=== PATIENT | male | born 1925 | race Caucasian/White ===

== ENCOUNTER 2017-01-08 18:03 | Observation (INO) ==
--- NOTE | 2017-01-08 18:12 | Emergency Department Note ---
Disposition Clinical Impression: Chest pain Disposition: Admitted As Inpatient Condition: Fair Referrals: Elizabeth Salgado CNP [Primary Care Provider] - Forms: ED Satisfaction Letter Time of Disposition: 19:34 (obsv elroy) Chest Pain HPI - General Chief Complaint: ED Chest Pain Stated Complaint: chest arm and jaw pain Time Seen by Provider: 01/08/17 18:16 Source: patient Mode of arrival: ambulatory Limitations: no limitations Vital Signs Reviewed: Yes Nursing Notes Reviewed: Yes - History of Present Illness HPI Narrative: Presents to the emergency room having chest pain jaw pain left arm pain but no numbness or weakness this tingling denies any nausea vomiting or diaphoresis at this time he said it had been going on earlier he denies cough hemoptysis or sputum production and he said it reminds him of when he had his cardiac disease he has had cardiac catheterization in the past and has had stenting he had open- heart 1980s as result he is here for evaluation Pt complaint: chest pain Onset (ago): hour(s) Onset: during rest, during exertion Pain Location: substernal Severity: mild Severity scale (1-10): 1 Quality: aching Pain Radiation: none Improves with: nothing Worsens with: nothing Associated symptoms: Reports: nausea, diaphoresis, dyspnea, other (jaw pain). Denies: vomiting, sense of impending doom, syncope, palpitations, fever, cough, leg swelling Treatments prior to arrival chest pain: aspirin - Related Data Home Medications Medication Instructions Recorded Confirmed Aspirin 325 mg PO DAILY 03/21/15 03/21/15 Enalapril Maleate [Vasotec] 20 mg PO BID 03/21/15 03/21/15 Finasteride [Proscar] 5 mg PO DAILY 03/21/15 03/21/15 Furosemide [Lasix] 10 mg PO DAILY 03/21/15 03/21/15 HydrALAZINE 25 mg PO Q8HR 03/21/15 03/21/15 Potassium Chloride [Potassium 10 meq PO DAILY 03/21/15 03/21/15 Chloride] Primidone [Mysoline] 25 mg PO BID 03/21/15 03/21/15 Propranolol [Inderal] 20 mg PO BID 03/21/15 03/21/15 Ranitidine HCl [Zantac] 150 mg PO DAILY 03/21/15 03/21/15 Simvastatin [Zocor] 40 mg PO HS 03/21/15 03/21/15 Previous Rx's Medication Instructions Recorded Cephalexin [Keflex] 500 mg PO TID #21 capsule 03/21/15 HYDROcodone/Acet 5/325 mg [[place] 1 tab PO TID PRN #6 tablet 03/21/15 5-325 mg] Allergies Allergy/AdvReac Type Severity Reaction Status Date / Time iodine Allergy Hives Verified 03/21/15 10:16 All systems ED: reviewed and negative except as stated. Constitutional: Denies: fever, chills, weakness Eyes: Denies: eye pain, eye discharge ENT ED: Denies: ear pain Cardiovascular: Reports: chest pain. Denies: palpitations, dyspnea on exertion Respiratory: Denies: cough, dyspnea, wheezes Gastrointestinal: Denies: abdominal pain, nausea, vomiting Genitourinary: Denies: urgency, dysuria Musculoskeletal: Denies: back pain, neck pain Integumentary: Denies: rash Neurological: Denies: headache Psychiatric: Denies: anxiety Endocrine: Denies: fatigue Hematological/Lymphatic: Denies: easy bleeding Allergic/Immunologic: Denies: facial swelling Chest Pain PMH - Past Medical History Medical history: Reports: coronary artery disease Surgical history: Reports: coronary bypass (CABG) - Social History Smoking Status: Former smoker Alcohol use: Reports: occasionally Drug use: Reports: none Physical Exam - General Limitations: no limitations General appearance: alert, in no apparent distress - Head Head exam: atraumatic, normocephalic, normal inspection - Eye Eye exam: Present: normal appearance, PERRL, EOMI - ENT ENT exam: normal exam, normal oropharynx, mucous membranes moist, normal external ear exam - Neck Neck exam: Present: normal inspection, full ROM, trachea midline - Chest Chest inspection: Present: normal inspection, symmetric chest wall rise - Respiratory Respiratory exam: Present: normal lung sounds bilaterally - Cardiovascular Cardiovascular exam: Present: regular rate, normal rhythm, normal heart sounds - Abdominal Exam Abdominal exam: Present: soft, Non-Tender, normal bowel sounds. Absent: mass, pulsatile mass - Extremities Exam Extremities exam: Present: normal inspection, full ROM, normal capillary refill. Absent: tenderness, joint swelling - Expanded Lower Extremity Exam Neurovascular/Tendon exam: Present: normal capillary refill, normal fine/light touch Gait: observed and normal - Back Exam Back exam: Present: normal inspection, full ROM. Absent: muscle spasm - Neurological Exam Neurological exam: Present: alert, oriented X3, CN II-XII intact, normal gait - Psychiatric Psychiatric exam: Present: normal affect, normal mood - Skin Skin exam: Present: warm, dry, intact, normal color Course Course Narrative: Seen and examined patient is asymptomatic at this time patient is resting comfortably patient taken his aspirin prior to arrival to the emergency room as result patient be admitted for observation based on his history Vital Signs Temperature 100.9 F H 01/08/17 18:16 Pulse Rate 104 01/08/17 18:16 Respiratory Rate 23 01/08/17 18:16 Blood Pressure 121/62 01/08/17 18:16 O2 Sat by Pulse Oximetry 98 01/08/17 18:16 Temperature 100.9 F H 01/08/17 18:19 Pulse Rate 105 01/08/17 18:25 Respiratory Rate 23 01/08/17 18:19 Blood Pressure 121/62 01/08/17 18:19 O2 Sat by Pulse Oximetry 98 01/08/17 18:19 Oxygen Delivery Oxygen Delivery Room Air Chest Pain - Differential Diagnosis Likely: unstable angina pectoris, st elevation myocardial infraction, chest pain - Medical Records Medical records reviewed: Yes I reviewed the patient's medical records. - Lab Data Lab results reviewed: Yes I reviewed the patient's lab results. Result diagrams: 01/08/17 18:43 01/08/17 18:43 Lab Results 01/08/17 01/08/17 01/08/17 Range/Units 18:43 18:43 18:43 WBC 6.9 (4.3-11.1) K/mcL RBC 4.74 (4.19-5.50) M/mcL Hgb 14.5 (12.9-16.9) g/dL Hct 41.6 (37.5-50.1) % MCV 87.8 (83.0-100.0) fL MCH 30.6 (28.0-33.3) pg MCHC 34.9 (31.6-35.5) g/dL RDW 13.2 (11.5-14.5) % Plt Count 154 (140-400) K/mcL MPV 10.2 (9.4-12.4) fL Immature Gran % 0.4 (0-4) % Seg Neutrophils % 69.8 % Lymphocytes % 17.9 % Monocytes % 9.3 % Eosinophils % 1.9 % Basophils % 0.7 % Neutrophils # 4.8 (1.6-8.9) K/mcL Lymphocytes # 1.2 (0.6-4.6) K/mcL Monocytes # 0.6 (0.0-1.3) K/mcL Eosinophils # 0.1 (0.0-0.6) K/mcL Basophils # 0.1 (0.0-0.2) K/mcL PT 11.8 (9.4-12.1) Seconds INR 1.1 APTT 29.2 (26.0-36.0) Seconds Sodium 142 (136-145) mEq/L Potassium 4.0 (3.5-4.5) mEq/L Chloride 105 (98-109) mEq/L Carbon Dioxide 25 (19-29) mEq/L BUN 16 (8-26) mg/dL Creatinine 0.96 (0.72-1.25) mg/dL Est GFR ( Amer) > 60 (> 60) Est GFR (Non-Af Amer) > 60 (> 60) BUN/Creatinine Ratio 17 (6-26) Glucose 141 H (70-99) mg/dL Calculated Osmolality 298 (280-300) Calcium 10.5 (8.6-10.8) mg/dL Troponin I (0-0.03) ng/mL B-Natriuretic Peptide (0-100) pg/mL TSH 1.997 (0.350-4.840) mcIU/mL 01/08/17 01/08/17 Range/Units 18:43 18:43 WBC (4.3-11.1) K/mcL RBC (4.19-5.50) M/mcL Hgb (12.9-16.9) g/dL Hct (37.5-50.1) % MCV (83.0-100.0) fL MCH (28.0-33.3) pg MCHC (31.6-35.5) g/dL RDW (11.5-14.5) % Plt Count (140-400) K/mcL MPV (9.4-12.4) fL Immature Gran % (0-4) % Seg Neutrophils % % Lymphocytes % % Monocytes % % Eosinophils % % Basophils % % Neutrophils # (1.6-8.9) K/mcL Lymphocytes # (0.6-4.6) K/mcL Monocytes # (0.0-1.3) K/mcL Eosinophils # (0.0-0.6) K/mcL Basophils # (0.0-0.2) K/mcL PT (9.4-12.1) Seconds INR APTT (26.0-36.0) Seconds Sodium (136-145) mEq/L Potassium (3.5-4.5) mEq/L Chloride (98-109) mEq/L Carbon Dioxide (19-29) mEq/L BUN (8-26) mg/dL Creatinine (0.72-1.25) mg/dL Est GFR ( Amer) (> 60) Est GFR (Non-Af Amer) (> 60) BUN/Creatinine Ratio (6-26) Glucose (70-99) mg/dL Calculated Osmolality (280-300) Calcium (8.6-10.8) mg/dL Troponin I 0.01 (0-0.03) ng/mL B-Natriuretic Peptide 159 H (0-100) pg/mL TSH (0.350-4.840) mcIU/mL - Radiology Data Radiology results reviewed: Yes I reviewed the patient's radiology results. ITS Impressions Chest X-Ray 01/08/17 18:18 IMPRESSION: No acute process. D/ / Adam Govea MD / Adam Govea MD Interpreting Provider: Adam Govea MD - EKG Data EKG attestation: Yes I reviewed and interpreted this EKG. EKG results narrative: Atrial fib with RVR rate 103 QRS 138 QT 358 axis CXXXIII right bundle branch block present left posterior fascicular block Heart Score - Score History: Slightly Suspicious EKG: Non Specific repolarisation Disturbance Age: Greater than 65 Risk Factors: Equal/Greater than 3 risk factor or history of atherosclerotic disease Troponin: Less than normal limit HEART Score Total: 5 Critical Care Time Critical Care Time: No
[2017-01-08 18:51] LABS: Basophils # 0.1 K/mcL (0.0-0.2); Basophils % 0.7 %; Eosinophils # 0.1 K/mcL (0.0-0.6); Eosinophils % 1.9 %; Hematocrit 41.6 % (37.5-50.1); Hemoglobin 14.5 g/dL (12.9-16.9); Immature Granulocytes % 0.4 % (0-4); Lymphocytes # 1.2 K/mcL (0.6-4.6); Lymphocytes % 17.9 %; Mean Corpuscular HGB Conc 34.9 g/dL (31.6-35.5); Mean Corpuscular Hemoglobin 30.6 pg (28.0-33.3); Mean Corpuscular Volume 87.8 fL (83.0-100.0); Mean Platelet Volume 10.2 fL (9.4-12.4); Monocytes # 0.6 K/mcL (0.0-1.3); Monocytes % 9.3 %; Neutrophils # 4.8 K/mcL (1.6-8.9); Platelet Count 154 K/mcL (140-400); Red Blood Count 4.74 M/mcL (4.19-5.50); Red Cell Distribution Width 13.2 % (11.5-14.5); Segmented Neutrophils % 69.8 %
[2017-01-08 18:57] LABS: INR 1.1; Prothrombin Time 11.8 Seconds (9.4-12.1)
[2017-01-08 19:00] LABS: Activated Partial Thrombo Time 29.2 Seconds (26.0-36.0)
[2017-01-08 19:04] LABS: BUN/Creatinine Ratio 17 (6-26); Blood Urea Nitrogen 16 mg/dL (8-26); Calcium 10.5 mg/dL (8.6-10.8); Carbon Dioxide 25 mEq/L (19-29); Chloride 105 mEq/L (98-109); Glucose 141 mg/dL (70-99); Osmolality,Calculated 298 (280-300); Sodium 142 mEq/L (136-145); eGFR For African Americans > 60 (> 60); eGFR For Non-African Americans > 60 (> 60)
[2017-01-08 19:25] LABS: Thyroid Stimulating Hormone 1.997 mcIU/mL (0.350-4.840)
[2017-01-08] MEDS ORDERED: *HR* HYDROcodone/Acet 5/325 mg TABLET PO PRN (20:59)
[2017-01-08] MEDS ORDERED: Naloxone 0.4 MG/ML INJ IVP PRN (20:59)
[2017-01-08] MEDS: Primidone 50 MG TABLET PO SCH (22:15)
[2017-01-08] MEDS: cephALEXin 250 MG CAPSULE PO SCH (22:15)
[2017-01-08] MEDS: Lisinopril 20 MG TABLET PO SCH (22:15)
[2017-01-09] MEDS: hydrALAZINE 25 MG TABLET PO SCH ×2 (00:35→09:32)
[2017-01-09] MEDS: cephALEXin 250 MG CAPSULE PO SCH (08:38)
[2017-01-09] MEDS: Primidone 50 MG TABLET PO SCH (08:40)
[2017-01-09] MEDS: Lisinopril 20 MG TABLET PO SCH (08:46)
[2017-01-09] MEDS ORDERED: Furosemide 20 MG TABLET PO SCH (09:00)
[2017-01-09] MEDS ORDERED: Finasteride 5 MG TABLET PO SCH (09:00)
[2017-01-09] MEDS ORDERED: Aspirin 325 MG TABLET PO SCH (09:00)
[2017-01-09] MEDS ORDERED: Famotidine 20 MG TABLET PO SCH (09:00)
[2017-01-09 13:33] VITALS: BP 184/80
[2017-01-09] MEDS ORDERED: amLODIPine 5 MG TABLET PO SCH (14:00)
--- NOTE | 2017-01-09 14:02 | Internal Med History&Physical ---
Date of Encounter: 01/09/17 Time of Encounter: 12:15 Assessment and Plan (1) Chest pain Current visit: Yes Status: Acute Repeat cardiac enzymes were ordered through emergency room. Qualifiers: Chest pain type: unspecified Qualified Code(s): R07.9 - Chest pain, unspecified Internal Medicine - H&P: HPI Chief complaint: Chest discomfort Admitted From: Home Plans for Post Hospital Care: Home History of present illness: Mr. Iniguez is a 89 year old male who came to emergency room stating he had onset of discomfort in his chest, arms and jaw approximately 3 PM while at leisure. He took a SL nitroglycerin pill with no significant improvement immediately. When the pain did not resolve he came to emergency room. He was treated in emergency room and became pain-free. He was admitted to [facility] for ongoing care needs. He has had no recurrence of the pain since admission. He states he had a previous episode of similar pain several years ago. He has known ASHD status post [place] 1987 followed by one-vessel CABG to [facility] (?). His most recent heart catheter was approximately 2012 at [facility]. A stenosis was seen but patient was told vessel was too small for a stent to be placed. When he went to [place] a few months later he had a single stent placed in the culprit vessel. He is uncertain if he has had EST since the stent was placed. He had aortic aneurysm repair several years ago at [facility]. He denies heart failure DVT or pulmonary embolus. He states he is pain-free at the present time. He states he does not get angina or anginal equivalents on exertional activities. Past Med Surg Social Fam HX - Past Medical History Medical history: coronary artery disease Psychiatric history: no psych history - Past Surgical History Surgical History: coronary bypass (CABG) - Social History Smoking Status: Former smoker Smokeless Tobacco Status: Yes Alcohol use: occasionally Drug use: none Internal Medicine - H&P: Meds Aspirin 325 mg PO DAILY 03/21/15 [History] Cephalexin [Keflex] 500 mg PO TID #21 capsule 03/21/15 [Rx] Enalapril Maleate [Vasotec] 20 mg PO BID 03/21/15 [History] Finasteride [Proscar] 5 mg PO DAILY 03/21/15 [History] Furosemide [Lasix] 10 mg PO DAILY 03/21/15 [History] HYDROcodone/Acet 5/325 mg [[place] 5-325 mg] 1 tab PO TID PRN #6 tablet 03/21/15 [ Rx] HydrALAZINE 25 mg PO Q8HR 03/21/15 [History] Potassium Chloride [Potassium Chloride] 10 meq PO DAILY 03/21/15 [History] Primidone [Mysoline] 25 mg PO BID 03/21/15 [History] Propranolol [Inderal] 20 mg PO BID 03/21/15 [History] Ranitidine HCl [Zantac] 150 mg PO DAILY 03/21/15 [History] Simvastatin [Zocor] 40 mg PO HS 03/21/15 [History] Allergies iodine Allergy (Verified 03/21/15 10:16) Hives All Systems PM: A 10-system review of systems was performed and is negative for pertinent findings except as documented above in the HPI. Review of systems: Gen.: He states his weight has been stable the past few months Cardiovascular: As per history of present illness Respiratory: He smoked from age [age] never exceeding 1 pack per day. He does not have documented chronic lung disease GI: He denies disorders of his liver gallbladder or exocrine pancreas. He had colon cancer diagnosed 2013 with resection which was curative. : He has BPH. He had bladder stones removal several years ago. He denies other kidney bladder prostate disorders Neurologic: He has essential tremor but denies large distribution strokes or seizures Endocrine: He has hyperlipidemia but denies diabetes or thyroid disease Hematology/oncology: He had colon cancer with curative resection as per above. He did not have postsurgical chemotherapy or radiation therapy. He denies other internal malignancies or blood disorders Psychiatric: He denies anxiety depression or other mental health issues Musk skeletal: He has DJD but no known gout or other bone joint or muscle disorders. - Constitutional Vitals: Temp Pulse Resp BP Pulse Ox 98.6 F 57 18 184/80 98 01/09/17 13:29 01/09/17 13:29 01/09/17 13:29 01/09/17 13:29 01/09/17 13:29 Exam: General: He is a well-developed well-nourished male who appears in no severe distress at present time HEENT: Head is atraumatic and normocephalic. Eyes: EOMI. There is no scleral icterus. Mouth: Mucosa is moist. Neck: Supple and nontender. There is no thyromegaly or adenopathy noted. Heart: Regular without murmurs gallops or ectopics Lungs: No wheezes or crackles are heard Abdomen: Soft and nontender. No masses or guarding are noted. Extremities: There is no cyanosis edema, or clubbing noted. Dorsalis pedis and posterior tibial pulses are 1-2 over 2 bilaterally. Neurologic: Mental status: He is talkative and a good historian. Cranial nerves : Smile is symmetric. Forehead wrinkles bilaterally. Tongue protrudes midline. EOMI. Motor: There is no pronator drift. Cerebellar: Finger to nose is intact bilaterally. Skin: Warm and dry Internal Med - H&P Results - Labs CBC & Chem 7: 01/08/17 18:43 01/08/17 18:43 Labs: Cardiac Enzymes 01/09/17 Range/Units 06:48 Troponin I 0.06 H* (0-0.03) ng/mL
--- NOTE | 2017-01-09 14:14 | Discharge Summary ---
Date of Encounter: 01/09/17 Time of Encounter: 13:45 - Discharge Diagnosis (1) Chest pain Priority: Primary Status: Acute Qualifiers: Chest pain type: unspecified Qualified Code(s): R07.9 - Chest pain, unspecified - Discharge Medications Home Medications: Aspirin 325 mg PO DAILY 03/21/15 [History] Cephalexin [Keflex] 500 mg PO TID #21 capsule 03/21/15 [Rx] Enalapril Maleate [Vasotec] 20 mg PO BID 03/21/15 [History] Finasteride [Proscar] 5 mg PO DAILY 03/21/15 [History] Furosemide [Lasix] 10 mg PO DAILY 03/21/15 [History] HYDROcodone/Acet 5/325 mg [[place] 5-325 mg] 1 tab PO TID PRN #6 tablet 03/21/15 [ Rx] HydrALAZINE 25 mg PO Q8HR 03/21/15 [History] Potassium Chloride [Potassium Chloride] 10 meq PO DAILY 03/21/15 [History] Primidone [Mysoline] 25 mg PO BID 03/21/15 [History] Propranolol [Inderal] 20 mg PO BID 03/21/15 [History] Ranitidine HCl [Zantac] 150 mg PO DAILY 03/21/15 [History] Simvastatin [Zocor] 40 mg PO HS 03/21/15 [History] Allergies/Adverse Reactions: Allergies iodine Allergy (Verified 03/21/15 10:16) Hives Date of admission: 01/08/17 19:50 Primary care physician: Elizabeth Salgado [employer] - Patient Status Disposition: Transfer Other Condition: Fair - Discharge Instructions Hospital course: Mr. Iniguez is a 89 year old male who came to emergency room stating he had onset of discomfort in his chest, arms and jaw approximately 3 PM while at leisure. He took a SL nitroglycerin pill with no significant improvement immediately. When the pain did not resolve he came to emergency room. He was treated in emergency room and became pain-free. He was admitted to [facility] for ongoing care needs. Initial orders were written by the emergency room physician. I saw him on January 09 and performed the history and physical. Repeat cardiac enzymes showed a rise in troponin to 0.10. He remained pain-free after being in the emergency room. Returned to normal sinus rhythm from AF with RVR seen in the emergency room. I told him I felt he would benefit from a repeat heart cath. There were no beds available at [facility] so he chose to go to [facility]. Arrangements were completed for transfer the afternoon of January 09. - Time Spent with Patient Total time spent providing and/or coordinating discharge services: - Constitutional Vitals: Temp Pulse Resp BP Pulse Ox 98.6 F 57 18 184/80 98 01/09/17 13:29 01/09/17 13:29 01/09/17 13:29 01/09/17 13:29 01/09/17 13:29
[2017-01-09] MEDS ORDERED: *HR* Enoxaparin 80 MG/0.8 ML SYRINGE SQ STA (14:15)
--- NOTE | 2017-01-09 15:32 | Electrocardiograph Report ---
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
== END 2017-01-09 15:45 | disposition short-term general hospital (02) ==
LOC: INPPIK 18:03 → EMEROOPIK 18:03 → INPPIK 21:03
PROVIDERS: ADMIT Internal Medicine; ATTEND Internal Medicine